=== PATIENT | female | born 1990 | race American Indian/Alaskan Native ===

== ENCOUNTER 2016-09-01 16:45 | Emergency (ER) | payer OTHER ==
[2016-09-01 16:55] VITALS: BP 146/98
--- NOTE | 2016-09-01 18:27 | Emergency Department Report ---
ED Rash HPI - HPI Chief Complaint: Skin Rash Stated Complaint: RASH ENTIRE BODY Time Seen by Provider: 09/01/16 17:41 Duration: 2 Days Location: Other Suspected Cause: Unknown Rash Symptoms: Yes Itching, No Facial Swelling, No Tongue/Oral Swelling, No Breathing Difficulties, No Choking Sensation, No Wheezing/Dyspnea, No Peeling, No Blistering, No Fever, No Lightheaded, No Malaise, No Myalgias Severity: mild Other History: 25 year old femael presents with rash to arms, chest, torso, legs , face for 2 days that it redy, bumpy, and itchy. denies taking medication. denies fever, cp, sob, throat swelling. denies allergies. ED Review of Systems ROS: Stated complaint: RASH ENTIRE BODY Other details as noted in HPI Constitutional: denies: chills, fever Eyes: denies: eye pain, eye discharge, vision change ENT: denies: ear pain, throat pain Respiratory: denies: cough, shortness of breath, wheezing Cardiovascular: denies: chest pain, palpitations Endocrine: no symptoms reported Gastrointestinal: denies: abdominal pain, nausea, diarrhea Genitourinary: denies: urgency, dysuria, discharge Musculoskeletal: denies: back pain, joint swelling, arthralgia Skin: rash. denies: lesions Neurological: denies: headache, weakness, paresthesias Psychiatric: denies: anxiety, depression Hematological/Lymphatic: denies: easy bleeding, easy bruising ED Past Medical Hx - Past Medical History Hx HIV: Yes (dx 08/2016) - Surgical History Hx Cholecystectomy: Yes - Social History Smoking Status: Never Smoker Substance Use Type: None - Medications Home Medications: Home Medications Medication Instructions Recorded Confirmed Last Taken Type Permethrin 5% [Acticin 5% CREAM] 1 applicatio TP ONCE #1 tube 09/01/16 Unknown Rx Prednisone [predniSONE 10 mg 10 mg PO .TAPER #1 tab.ds.pk 09/01/16 Unknown Rx (6-Day Pack, 21 Tabs)] hydrOXYzine PAMOATE [Vistaril] 25 mg PO Q6HR PRN #20 capsule 09/01/16 Unknown Rx Rash Exam - Exam General: Vital signs noted. No distress. Alert and acting appropriately. HEENT: No Periorbital Edema, No Conjuctival Injection, No Chemosis, No Perioral Edema, No Tongue Edema, No Uvular Edema, No Compromised Airway, No Drooling Lungs: Yes Good Air Exchange (Normal Breath Sounds), No Wheezes, No Ronchi, No Stridor, No Cough, No Labored Respirations, No Retractions, No Use of Accessory Muscles, No Other Abnormal Lung Sounds Heart: Yes Regular, No Murmur Skin: Yes Maculopapular Rash, No Urticarial Rash, No Morbilliform rash, No Bulla (e), No Excoriations, No Weeping, No Tenderness, No Erythema, No Edema, No Encrustations, No Other Other: Positive: Abdomen Normal, Neurologic Normal, Musculoskeletal Normal ED Course Vital Signs 09/01/16 16:50 Temperature 98 F Pulse Rate 95 H Respiratory 18 Rate Blood Pressure 146/98 O2 Sat by Pulse 100 Oximetry ED Medical Decision Making - Medical Decision Making patient symptoms appear to be consistent with scabies. Critical care attestation.: If time is entered above; I have spent that time in minutes in the direct care of this critically ill patient, excluding procedure time. ED Disposition Clinical Impression: Rash and nonspecific skin eruption, Itching Disposition: DISCHARGED TO HOME OR SELFCARE Is pt being admited?: No Does the pt Need Aspirin: No Condition: Good Instructions: Acute Rash (ED) Prescriptions: hydrOXYzine PAMOATE [Vistaril] 25 mg PO Q6HR PRN #20 capsule PRN Reason: Itching Permethrin 5% [Acticin 5% CREAM] 1 applicatio TP ONCE #1 tube Prednisone [predniSONE 10 mg (6-Day Pack, 21 Tabs)] 10 mg PO .TAPER #1 tab.darian Referrals: PRIMARY CARE, [Primary Care Provider] - 3-5 Days Forms: Work/School Release Form(ED) Time of Disposition: 18:34
[2016-09-01] MEDS ORDERED: DECADRON IM ONE (18:35)
== END 2016-09-01 19:08 | disposition home or self-care (01) ==
LOC: ED 16:45
DX: R21 Rash and other nonspecific skin eruption (principal); L29.9 Pruritus, unspecified
CPT/HCPCS: 96372; 99282; J1100

== ENCOUNTER 2016-12-31 19:32 | Emergency (ER) | payer SELFPAY ==
[2016-12-31 20:29] LABS: Basophils % (Auto) 0.9 % (0.0-1.8); Eosinophils % (Auto) 2.2 % (0.0-4.3); Hematocrit 44.1 % (30.3-42.9); Hemoglobin 14.1 gm/dl (10.1-14.3); Mean Corpuscular HGB Conc 32 % (30-34); Mean Corpuscular Hemoglobin 26 pg (28-32); Mean Corpuscular Volume 81 fl (79-97); Red Blood Count 5.43 M/mm3 (3.65-5.03); Red Cell Distribution Width 15.6 % (13.2-15.2); White Blood Count 9.3 K/mm3 (4.5-11.0)
[2016-12-31 20:42] LABS: Platelet Count 242 K/mm3 (140-440)
[2016-12-31 21:19] LABS: Alanine Aminotransferase 62 units/L (7-56); Albumin 4.5 g/dL (3.9-5); Albumin/Globulin Ratio 1.6 %; Alkaline Phosphatase 57 units/L (35-129); Anion Gap 21 mmol/L; BUN/Creatinine Ratio 15.71; Bilirubin,Total < 0.20 mg/dL (0.1-1.2); Blood Urea Nitrogen 11 mg/dL (7-17); Calcium 9.4 mg/dL (8.4-10.2); Carbon Dioxide 23 mmol/L (22-30); Chloride 103.9 mmol/L (98-107); Glucose 108 mg/dL (65-100); Potassium 4.5 mmol/L (3.6-5.0); Sodium 143 mmol/L (137-145); Total Protein 7.4 g/dL (6.3-8.2)
[2016-12-31 21:54] LABS: Bacteria,Urine 1+ /HPF (Negative); Bilirubin,Urine NEG (Negative); Blood,Urine NEG (Negative); Ketones,Urine NEG (Negative); Leukocyte Esterase,Urine NEG (Negative); Mucus,Urine 1+ /HPF; Nitrite,Urine NEG (Negative); Protein,Urine <15 mg/dL mg/dL (Negative); Urobilinogen,Urine < 2.0 mg/dL (<2.0)
[2017-01-01] MEDS ORDERED: TORADOL IM ONE (00:57)
--- NOTE | 2017-01-01 01:49 | Emergency Department Report ---
ED Abdominal Pain HPI - General Chief Complaint: Abdominal Pain Stated Complaint: ABD PAIN/DIZZY Time Seen by Provider: 01/01/17 00:43 Source: patient Mode of arrival: Ambulatory Limitations: No Limitations - History of Present Illness Initial Comments: Pt is a 26 yr old F with a h/o HIV on anti-virals who presents with abdominal pain. 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 Pain is sharp, intermittent, and does not radiate or migrate. Alleviated and exacerbated by nothing. Otherwise no fevers, chills, MEYERS, NVD, SOB, CP, dysuria, back pain, hematuria, trauma, falls, travel, or sick contacts. Prior cholecystectomy years ago - Related Data Previous Rx's Medication Instructions Recorded Last Taken Type Permethrin 5% [Acticin 5% CREAM] 1 applicatio TP ONCE #1 tube 09/01/16 Unknown Rx hydrOXYzine PAMOATE [Vistaril] 25 mg PO Q6HR PRN #20 capsule 09/01/16 Unknown Rx Naproxen [Naprosyn] 500 mg PO BID PRN #10 tablet 01/01/17 Unknown Rx Allergies Allergy/AdvReac Type Severity Reaction Status Date / Time Penicillins Allergy Unknown Verified 09/01/16 16:55 ED Review of Systems ROS: Stated complaint: ABD PAIN/DIZZY Other details as noted in HPI Comment: All other systems reviewed and negative ED Past Medical Hx - Past Medical History Previous Medical History?: Yes Hx HIV: Yes (dx 08/2016) - Surgical History Past Surgical History?: Yes Hx Cholecystectomy: Yes - Social History Smoking Status: Current Every Day Smoker Substance Use Type: None - Medications Home Medications: Home Medications Medication Instructions Recorded Confirmed Last Taken Type Permethrin 5% [Acticin 5% CREAM] 1 applicatio TP ONCE #1 tube 09/01/16 Unknown Rx hydrOXYzine PAMOATE [Vistaril] 25 mg PO Q6HR PRN #20 capsule 09/01/16 Unknown Rx Naproxen [Naprosyn] 500 mg PO BID PRN #10 tablet 01/01/17 Unknown Rx ED Physical Exam - General Limitations: No Limitations General appearance: alert, in no apparent distress - Head Head exam: Present: atraumatic, normocephalic - Eye Eye exam: Present: normal appearance - ENT ENT exam: Present: mucous membranes moist - Neck Neck exam: Present: normal inspection - Respiratory Respiratory exam: Present: normal lung sounds bilaterally. Absent: respiratory distress - Cardiovascular Cardiovascular Exam: Present: regular rate, normal rhythm. Absent: systolic murmur, diastolic murmur, rubs, gallop - GI/Abdominal GI/Abdominal exam: Present: soft, tenderness (mild RLQ tenderness), normal bowel sounds. Absent: distended, guarding, rebound, rigid, hyperactive bowel sounds, organomegaly, pulsatile mass, hernia - Rectal Rectal exam: Present: deferred - Extremities Exam Extremities exam: Present: normal inspection - Back Exam Back exam: Present: normal inspection - Neurological Exam Neurological exam: Present: alert, oriented X3 - Psychiatric Psychiatric exam: Present: normal affect, normal mood - Skin Skin exam: Present: warm, dry, intact, normal color. Absent: rash ED Course Vital Signs 12/31/16 01/01/17 20:03 02:07 Temperature 98.4 F Pulse Rate 103 H 65 Respiratory 20 20 Rate Blood Pressure 146/99 Blood Pressure 142/91 [Left] O2 Sat by Pulse 99 100 Oximetry ED Medical Decision Making - Lab Data Result diagrams: 12/31/16 20:10 12/31/16 20:10 - Medical Decision Making Results discussed with the patient Pt to follow up with her PMD for her abdominal paint and HTN Critical care attestation.: If time is entered above; I have spent that time in minutes in the direct care of this critically ill patient, excluding procedure time. ED Disposition Clinical Impression: Abdominal pain, HTN (hypertension) Disposition: DC-01 TO HOME OR SELFCARE Is pt being admited?: No Condition: Stable Instructions: Abdominal Pain (ED), Hypertension (ED) Additional Instructions: PLEASE FOLLOW UP WITH YOUR PMD FOR YOU ABDOMINAL PAIN AND TO MONITOR YOUR BP, YOU HAVE BORDERLINE HIGH BLOOD PRESSURE Prescriptions: Naproxen [Naprosyn] 500 mg PO BID PRN #10 tablet PRN Reason: Pain Referrals: PRIMARY CARE,MD [Primary Care Provider] - 3-5 Days
[2017-01-01 02:09] VITALS: BP 142/91
== END 2017-01-01 03:03 | disposition home or self-care (01) ==
LOC: ED 19:32
DX: R10.31 Right lower quadrant pain (principal); I10 Essential (primary) hypertension; F17.200 Nicotine dependence, unspecified, uncomplicated
CPT/HCPCS: 36415; 80053; 81001; 84703; 85025; 96372; 99283; J1885

== ENCOUNTER 2017-05-22 15:50 | Emergency (ER) | payer SELFPAY ==
[2017-05-22 16:02] VITALS: BP 142/98
--- NOTE | 2017-05-22 17:54 | Emergency Department Report ---
ED ENT HPI - General Chief complaint: Dental/Oral Stated complaint: TOOTH PAIN Time Seen by Provider: 05/22/17 17:49 Source: patient Mode of arrival: Ambulatory Limitations: No Limitations - History of Present Illness Initial comments: States her tooth has been hurting for two days. MD complaint: tooth pain -: Gradual, days(s) (2) Location: tooth # (2) Severity: mild Quality: sharp Consistency: constant Improves with: none Worsens with: none Context- Dental: history of dental caries Associated Symptoms: toothache. denies: fever, pain with swallowing - Related Data Previous Rx's Medication Instructions Recorded Last Taken Type Permethrin 5% [Acticin 5% CREAM] 1 applicatio TP ONCE #1 tube 09/01/16 Unknown Rx hydrOXYzine PAMOATE [Vistaril] 25 mg PO Q6HR PRN #20 capsule 09/01/16 Unknown Rx Naproxen [Naprosyn] 500 mg PO BID PRN #10 tablet 01/01/17 Unknown Rx Amoxicillin [Amoxicillin TAB] 875 mg PO BID #20 tablet 05/22/17 Unknown Rx Ibuprofen [Motrin] 800 mg PO Q8HR PRN #15 tablet 05/22/17 Unknown Rx Allergies Allergy/AdvReac Type Severity Reaction Status Date / Time Penicillins Allergy Unknown Verified 05/22/17 15:59 ED Dental HPI - General Chief complaint: Dental/Oral Stated complaint: TOOTH PAIN Time Seen by Provider: 05/22/17 17:49 Source: patient Mode of arrival: Ambulatory Limitations: No Limitations - Related Data Previous Rx's Medication Instructions Recorded Last Taken Type Permethrin 5% [Acticin 5% CREAM] 1 applicatio TP ONCE #1 tube 09/01/16 Unknown Rx hydrOXYzine PAMOATE [Vistaril] 25 mg PO Q6HR PRN #20 capsule 09/01/16 Unknown Rx Naproxen [Naprosyn] 500 mg PO BID PRN #10 tablet 01/01/17 Unknown Rx Amoxicillin [Amoxicillin TAB] 875 mg PO BID #20 tablet 05/22/17 Unknown Rx Ibuprofen [Motrin] 800 mg PO Q8HR PRN #15 tablet 05/22/17 Unknown Rx Allergies Allergy/AdvReac Type Severity Reaction Status Date / Time Penicillins Allergy Unknown Verified 05/22/17 15:59 ED Review of Systems ROS: Stated complaint: TOOTH PAIN Other details as noted in HPI Comment: All other systems reviewed and negative Constitutional: denies: chills, fever Eyes: denies: eye pain, eye discharge, vision change ENT: dental pain. denies: ear pain, throat pain Respiratory: denies: cough, shortness of breath, wheezing Cardiovascular: denies: chest pain, palpitations Endocrine: no symptoms reported Gastrointestinal: denies: abdominal pain, nausea, diarrhea Genitourinary: denies: urgency, dysuria, discharge Musculoskeletal: denies: back pain, joint swelling, arthralgia Skin: denies: rash, lesions Neurological: denies: headache, weakness, paresthesias Psychiatric: denies: anxiety, depression Hematological/Lymphatic: denies: easy bleeding, easy bruising ED Past Medical Hx - Past Medical History Hx HIV: Yes (dx 08/2016) - Surgical History Hx Cholecystectomy: Yes - Social History Smoking Status: Current Every Day Smoker Substance Use Type: Alcohol - Medications Home Medications: Home Medications Medication Instructions Recorded Confirmed Last Taken Type Permethrin 5% [Acticin 5% CREAM] 1 applicatio TP ONCE #1 tube 09/01/16 Unknown Rx hydrOXYzine PAMOATE [Vistaril] 25 mg PO Q6HR PRN #20 capsule 09/01/16 Unknown Rx Naproxen [Naprosyn] 500 mg PO BID PRN #10 tablet 01/01/17 Unknown Rx Amoxicillin [Amoxicillin TAB] 875 mg PO BID #20 tablet 05/22/17 Unknown Rx Ibuprofen [Motrin] 800 mg PO Q8HR PRN #15 tablet 05/22/17 Unknown Rx ED Physical Exam - General Limitations: No Limitations General appearance: alert, in no apparent distress - Head Head exam: Present: atraumatic, normocephalic - Eye Eye exam: Present: normal appearance - ENT ENT exam: Present: mucous membranes moist - Expanded ENT Exam Expanded Mouth exam: Present: normal external inspection. Absent: drooling, trismus Teeth exam: Present: dental caries, dental tenderness # (2), other (no facial or neck swelling. ) Throat exam: Positive: normal inspection - Neck Neck exam: Present: normal inspection - Respiratory Respiratory exam: Present: normal lung sounds bilaterally. Absent: respiratory distress, wheezes - Cardiovascular Cardiovascular Exam: Present: regular rate, normal rhythm. Absent: systolic murmur, diastolic murmur, rubs, gallop - GI/Abdominal GI/Abdominal exam: Present: soft, normal bowel sounds. Absent: tenderness - Extremities Exam Extremities exam: Present: normal inspection - Back Exam Back exam: Present: normal inspection - Neurological Exam Neurological exam: Present: alert, oriented X3 - Psychiatric Psychiatric exam: Present: normal affect, normal mood - Skin Skin exam: Present: warm, dry, intact, normal color. Absent: rash ED Course Vital Signs 05/22/17 15:59 Temperature 98.6 F Pulse Rate 103 H Respiratory 20 Rate Blood Pressure 142/98 O2 Sat by Pulse 98 Oximetry ED Medical Decision Making - Medical Decision Making Follow with dentist. Will give Amoxil- states allergy to PCN only and has taken Amoxil. - Differential Diagnosis dental pain, abscess Critical care attestation.: If time is entered above; I have spent that time in minutes in the direct care of this critically ill patient, excluding procedure time. ED Disposition Clinical Impression: Dentalgia Disposition: DC-01 TO HOME OR SELFCARE Is pt being admited?: No Condition: Good Instructions: Toothache (ED) Prescriptions: Amoxicillin [Amoxicillin TAB] 875 mg PO BID #20 tablet Ibuprofen [Motrin] 800 mg PO Q8HR PRN #15 tablet PRN Reason: Pain Forms: Work/School Release Form(ED) Time of Disposition: 17:54
[2017-05-22] MEDS ORDERED: TYLENOL #3 PO ONE (18:08)
[2017-05-22] MEDS ORDERED: LIDOCAINE VISCOUS 2% MM ONE (18:15)
== END 2017-05-22 18:29 | disposition home or self-care (01) ==
LOC: ED 15:50
DX: K08.89 Other specified disorders of teeth and supporting structures (principal); F17.200 Nicotine dependence, unspecified, uncomplicated; Z21 Asymptomatic human immunodeficiency virus [HIV] infection status; Z88.0 Allergy status to penicillin
CPT/HCPCS: 99282

== ENCOUNTER 2017-07-07 17:24 | Emergency (ER) | payer OTHER | END 2017-07-07 18:00 | disposition left against medical advice (07) | LOC: ED 17:24 | DX: K08.89 Other specified disorders of teeth and supporting structures (principal); Z53.21 Procedure and treatment not carried out due to patient leaving prior to being seen by health care provider ==

== ENCOUNTER 2017-12-23 18:34 | Emergency (ER) | payer BC ==
[2017-12-23 20:37] LABS: Bacteria,Urine 1+ /HPF (Negative); Bilirubin,Urine NEG (Negative); Blood,Urine NEG (Negative); Color,Urine Yellow (Yellow); Protein,Urine <15 mg/dL mg/dL (Negative); Urobilinogen,Urine < 2.0 mg/dL (<2.0)
[2017-12-23 20:58] LABS: Basophils # (Auto) 0.1 K/mm3 (0.0-0.1); Basophils % (Auto) 0.7 % (0.0-1.8); Eosinophils # (Auto) 0.2 K/mm3 (0.0-0.4); Eosinophils % (Auto) 1.5 % (0.0-4.3); Hematocrit 39.6 % (30.3-42.9); Hemoglobin 12.9 gm/dl (10.1-14.3); Lymphocytes # (Auto) 4.3 K/mm3 (1.2-5.4); Lymphocytes % (Auto) 35.4 % (13.4-35.0); Mean Corpuscular HGB Conc 33 % (30-34); Mean Corpuscular Hemoglobin 26 pg (28-32); Mean Corpuscular Volume 80 fl (79-97); Monocytes # (Auto) 0.8 K/mm3 (0.0-0.8); Monocytes % (Auto) 6.9 % (0.0-7.3); Platelet Count 268 K/mm3 (140-440); Red Blood Count 4.95 M/mm3 (3.65-5.03); Red Cell Distribution Width 15.2 % (13.2-15.2)
[2017-12-23 21:29] LABS: Alanine Aminotransferase 26 units/L (7-56); Albumin 4.2 g/dL (3.9-5); BUN/Creatinine Ratio 8; Blood Urea Nitrogen 7 mg/dL (7-17); Calcium 9.3 mg/dL (8.4-10.2); Hemolysis Index 10
[2017-12-23 21:46] LABS: HCG Qualitative,Urine Negative (Negative)
--- NOTE | 2017-12-23 22:44 | Emergency Department Report ---
HPI - General Chief Complaint: Abdominal Pain Time Seen by Provider: 12/23/17 22:28 - HPI HPI: Room 22 The patient is a 27-year-old female presenting with a chief complaint of abdominal pain. The patient states for the past 2-3 days she's had lower abdominal pain. The patient states yesterday the pain became localized to the right lower quadrant. Patient describes pain as sharp and crampy in nature. The patient states the pain is been intermittent and currently not present. Patient admits to subjective fever and chills. The patient admits to nausea but denies vomiting or diarrhea. Patient denies dysuria, hematuria, vaginal discharge or vaginal bleeding. The patient states her LMP occurred 10/08/2017 but she is normally somewhat regular. The patient is HIV positive and states her last CD4 count was in the 800s in November 2017 Location: Abdomen Duration: 3 days Quality: Sharp/cramping Severity: 0/10 currently Modifying factors: [see above] Context: [see above] Mode of transportation: [not driving] ED Past Medical Hx - Past Medical History Previous Medical History?: Yes Hx HIV: Yes (dx 08/2016) - Surgical History Past Surgical History?: Yes Hx Cholecystectomy: Yes - Family History Family history: no significant - Social History Smoking Status: Current Every Day Smoker (2/3 pack per day) Substance Use Type: Alcohol (occasional), Marijuana - Medications Home Medications: Home Medications Medication Instructions Recorded Confirmed Last Taken Type Permethrin 5% [Acticin 5% CREAM] 1 applicatio TP ONCE #1 tube 09/01/16 Unknown Rx hydrOXYzine PAMOATE [Vistaril] 25 mg PO Q6HR PRN #20 capsule 09/01/16 Unknown Rx Naproxen [Naprosyn] 500 mg PO BID PRN #10 tablet 01/01/17 Unknown Rx Amoxicillin [Amoxicillin TAB] 875 mg PO BID #20 tablet 05/22/17 Unknown Rx Ibuprofen [Motrin] 800 mg PO Q8HR PRN #15 tablet 05/22/17 Unknown Rx Ibuprofen [Motrin 800 MG tab] 800 mg PO Q8HR PRN #20 tablet 12/24/17 Unknown Rx traMADol [Ultram] 50 mg PO Q6HR PRN #10 tablet 12/24/17 Unknown Rx ED Review of Systems ROS: Stated complaint: ABDOMINAL PAIN Other details as noted in HPI Constitutional: chills, fever (subjective) Eyes: denies: eye pain ENT: denies: throat pain Cardiovascular: denies: chest pain Gastrointestinal: abdominal pain, nausea. denies: vomiting, diarrhea Genitourinary: abnormal menses. denies: dysuria, hematuria, discharge Musculoskeletal: denies: back pain Neurological: denies: headache Physical Exam - Physical Exam Vital Signs: Vital Signs 12/23/17 19:21 Temperature 99 F Pulse Rate 72 Blood Pressure 159/100 O2 Sat by Pulse 100 Oximetry Physical Exam: GENERAL: The patient is well-developed well-nourished female lying on stretcher not appearing to be in acute distress. [] HEENT: Normocephalic. Atraumatic. Extraocular motions are intact. Patient has moist mucous membranes. NECK: Supple. Trachea midline CHEST/LUNGS: Clear to auscultation. There is no respiratory distress noted. HEART/CARDIOVASCULAR: Regular. There is no tachycardia. There is no gallop rub or murmur. ABDOMEN: Abdomen is soft, with mild discomfort to palpation in the right upper quadrant. There is no rebound or guarding. Patient has normal bowel sounds. There is no abdominal distention. SKIN: There is no rash. There is no edema. There is no diaphoresis. NEURO: The patient is awake, alert, and oriented. The patient is cooperative. The patient has normal speech MUSCULOSKELETAL: There is no CVA tenderness. There is no evidence of acute injury. PELVIC: No discharge visualized. No bleeding. No cervical lesions appreciated ED Course Vital Signs 12/23/17 19:21 Temperature 99 F Pulse Rate 72 Blood Pressure 159/100 O2 Sat by Pulse 100 Oximetry ED Medical Decision Making - Lab Data Result diagrams: 12/23/17 20:39 12/23/17 20:39 Laboratory Tests 12/23/17 12/23/17 12/23/17 20:07 20:39 20:39 WBC 12.1 H RBC 4.95 Hgb 12.9 Hct 39.6 MCV 80 MCH 26 L MCHC 33 RDW 15.2 Plt Count 268 Lymph % (Auto) 35.4 H [place] % (Auto) 6.9 Eos % (Auto) 1.5 Baso % (Auto) 0.7 Lymph # 4.3 [place] # 0.8 Eos # 0.2 Baso # 0.1 Seg Neutrophils % 55.5 Seg Neutrophils # 6.7 Sodium 137 Potassium 3.9 Chloride 100.5 Carbon Dioxide 24 Anion Gap 16 BUN 7 Creatinine 0.9 Estimated GFR > 60 BUN/Creatinine Ratio 8 Glucose 88 Calcium 9.3 Total Bilirubin 0.40 AST 20 ALT 26 Alkaline Phosphatase 72 Total Protein 7.3 Albumin 4.2 Albumin/Globulin Ratio 1.4 Urine Color Yellow Urine Turbidity Clear Urine pH 6.0 Ur Specific [place] 1.014 Urine Protein <15 mg/dl Urine Glucose (UA) Neg Urine Ketones Neg Urine Blood Neg Urine Nitrite Neg Urine Bilirubin Neg Urine Urobilinogen < 2.0 Ur Leukocyte Esterase Neg Urine WBC (Auto) 1.0 Urine RBC (Auto) 1.0 U Epithel Cells (Auto) 1.0 Urine Bacteria (Auto) 1+ Urine HCG, Qual 12/23/17 21:39 WBC RBC Hgb Hct MCV MCH MCHC RDW Plt Count Lymph % (Auto) [place] % (Auto) Eos % (Auto) Baso % (Auto) Lymph # [place] # Eos # Baso # Seg Neutrophils % Seg Neutrophils # Sodium Potassium Chloride Carbon Dioxide Anion Gap BUN Creatinine Estimated GFR BUN/Creatinine Ratio Glucose Calcium Total Bilirubin AST ALT Alkaline Phosphatase Total Protein Albumin Albumin/Globulin Ratio Urine Color Urine Turbidity Urine pH Ur Specific [place] Urine Protein Urine Glucose (UA) Urine Ketones Urine Blood Urine Nitrite Urine Bilirubin Urine Urobilinogen Ur Leukocyte Esterase Urine WBC (Auto) Urine RBC (Auto) U Epithel Cells (Auto) Urine Bacteria (Auto) Urine HCG, Qual Negative Wet prep-less than 20% clue cells, no yeast, no Trichomonas - Radiology Data Radiology results: report reviewed (CT abdomen and pelvis), image reviewed (CT abdomen and pelvis) [place] [address] Cat Scan Report Signed Patient: GREG REYES MR#: [id number] : 1990 Acct:[id number] Age/Sex: 27 / F ADM Date: 12/23/17 Loc: ED Attending Dr: Ordering Physician: ADEOLA LAL MD Date of Service: 12/23/17 Procedure(s): CT abdomen pelvis w con Accession Number(s): [id number] cc: ADEOLA LAL MD FINAL REPORT EXAM: CT ABDOMEN PELVIS W CON HISTORY: right lower quadrant abdominal pain TECHNIQUE: Routine axial imaging was obtained of the abdomen and pelvis following the intravenous injection of 100 cc of Omnipaque 300. Delayed imaging was obtained through the kidneys ureters and bladder. Sagittal and coronal reconstructions were reviewed. FINDINGS: The lung bases are clear. Pleural fluid is not seen. The liver is mildly enlarged and reveals diminished attenuation compatible with hepatic steatosis. The gallbladder has been removed. The biliary tree appears normal. The pancreas, spleen, and adrenal glands appear normal. The kidneys enhance normally. There is no evidence of renal stones or hydronephrosis. The abdominal aorta is normal in caliber. The vascular structures enhance normally. The bowel loops are normal in caliber and course. The appendix is normal in configuration. There is no evidence of any inflammatory process in the right lower quadrant. In the pelvis the uterus and bladder are unremarkable. The skeletal structures do not show any acute changes. IMPRESSION: No acute process in the abdomen and pelvis. Hepatomegaly with hepatic steatosis. No evidence of appendicitis. No evidence of renal stones or hydronephrosis. Transcribed By: RB Dictated By: ZAC GOMEZ MD Electronically Authenticated By: ZAC GOMEZ MD Signed Date/Time: 12/24/1719 DD/ TD/TT: 12/24/1719 - Differential Diagnosis appendicitis, UTI, uterine fibroids, bacterial vaginosis, ovarian cyst Critical care attestation.: If time is entered above; I have spent that time in minutes in the direct care of this critically ill patient, excluding procedure time. ED Disposition Clinical Impression: Acute abdominal pain, Leukocytosis Disposition: - TO HOME OR SELFCARE Is pt being admited?: No Does the pt Need Aspirin: No Condition: Stable Instructions: Abdominal Pain (ED) Additional Instructions: Return to the emergency department immediately should you develop worsening symptoms, fever, inability to tolerate food or liquid or any other concerns. Prescriptions: Ibuprofen [Motrin 800 MG tab] 800 mg PO Q8HR PRN #20 tablet PRN Reason: Pain, Moderate (4-6) traMADol [Ultram] 50 mg PO Q6HR PRN #10 tablet PRN Reason: Pain Referrals: YANNA MCDONNELL MD [Primary Care Provider] - 3-5 Days SHARLA MADRID MD [Staff Physician] - 3-5 Days [facility] [Outside] - 3-5 Days Time of Disposition: 01:47
--- NOTE | 2017-12-24 00:25 | Cat Scan Report ---
FINAL REPORT EXAM: CT ABDOMEN PELVIS W CON HISTORY: right lower quadrant abdominal pain TECHNIQUE: Routine axial imaging was obtained of the abdomen and pelvis following the intravenous injection of 100 cc of Omnipaque 300. Delayed imaging was obtained through the kidneys ureters and bladder. Sagittal and coronal reconstructions were reviewed. FINDINGS: The lung bases are clear. Pleural fluid is not seen. The liver is mildly enlarged and reveals diminished attenuation compatible with hepatic steatosis. The gallbladder has been removed. The biliary tree appears normal. The pancreas, spleen, and adrenal glands appear normal. The kidneys enhance normally. There is no evidence of renal stones or hydronephrosis. The abdominal aorta is normal in caliber. The vascular structures enhance normally. The bowel loops are normal in caliber and course. The appendix is normal in configuration. There is no evidence of any inflammatory process in the right lower quadrant. In the pelvis the uterus and bladder are unremarkable. The skeletal structures do not show any acute changes. IMPRESSION: No acute process in the abdomen and pelvis. Hepatomegaly with hepatic steatosis. No evidence of appendicitis. No evidence of renal stones or hydronephrosis.
[2017-12-24 02:09] VITALS: BP 141/72
== END 2017-12-24 02:09 | disposition home or self-care (01) ==
LOC: ED 18:34
DX: D72.829 Elevated white blood cell count, unspecified (principal); R10.30 Lower abdominal pain, unspecified; F17.200 Nicotine dependence, unspecified, uncomplicated; F12.10 Cannabis abuse, uncomplicated
CPT/HCPCS: 36415; 74177; 80053; 81001; 81025; 85025; 87210; 87591; 99284; Q9967

== ENCOUNTER 2018-11-30 19:58 | Emergency (ER) | payer BC, OTHER ==
--- NOTE | 2018-11-30 20:05 | Emergency Department Report ---
Blank Doc - Documentation Documentation: This is a 28-year-old female that presents with bilateral ankle swelling. Den ies any chest pain or SOB. This initial assessment/diagnostic orders/clinical plan/treatment(s) is/are subject to change based on patient's health status, clinical progression and re- assessment by fellow clinical providers in the ED. Further treatment and workup at subsequent clinical providers discretion. Patient/guardians urged not to elope from the ED as their condition may be serious if not clinically assessed and managed. Initial orders include: 1- Patient sent to [facility] for further evaluation and treatment 2- labs
[2018-11-30 20:34] LABS: Basophils # (Auto) 0.1 K/mm3 (0.0-0.1); Basophils % (Auto) 0.5 % (0.0-1.8); Eosinophils # (Auto) 0.2 K/mm3 (0.0-0.4); Eosinophils % (Auto) 2.3 % (0.0-4.3); Hematocrit 40.5 % (30.3-42.9); Hemoglobin 13.4 gm/dl (10.1-14.3); Lymphocytes # (Auto) 3.9 K/mm3 (1.2-5.4); Lymphocytes % (Auto) 35.7 % (13.4-35.0); Mean Corpuscular HGB Conc 33 % (30-34); Mean Corpuscular Volume 83 fl (79-97); Monocytes # (Auto) 0.7 K/mm3 (0.0-0.8); Monocytes % (Auto) 6.1 % (0.0-7.3); Platelet Count 288 K/mm3 (140-440); Red Blood Count 4.91 M/mm3 (3.65-5.03); Red Cell Distribution Width 15.6 % (13.2-15.2)
[2018-11-30 21:01] LABS: BUN/Creatinine Ratio 11; Blood Urea Nitrogen 10 mg/dL (7-17); Hemolysis Index 14
--- NOTE | 2018-11-30 23:37 | Emergency Department Report ---
ED General Adult HPI - General Chief complaint: Extremity Problem,Nontraumatic Stated complaint: SWOLLEN ANKLES TINGLING Time Seen by Provider: 11/30/18 20:04 Source: patient Mode of arrival: Ambulatory Limitations: No Limitations - Related Data Previous Rx's Medication Instructions Recorded Last Taken Type Permethrin 5% [Acticin 5% CREAM] 1 applicatio TP ONCE #1 tube 09/01/16 Unknown Rx hydrOXYzine PAMOATE [Vistaril] 25 mg PO Q6HR PRN #20 capsule 09/01/16 Unknown Rx Naproxen [Naprosyn] 500 mg PO BID PRN #10 tablet 01/01/17 Unknown Rx Amoxicillin [Amoxicillin TAB] 875 mg PO BID #20 tablet 05/22/17 Unknown Rx Ibuprofen [Motrin] 800 mg PO Q8HR PRN #15 tablet 05/22/17 Unknown Rx Ibuprofen [Motrin 800 MG tab] 800 mg PO Q8HR PRN #20 tablet 12/24/17 Unknown Rx traMADol [Ultram] 50 mg PO Q6HR PRN #10 tablet 12/24/17 Unknown Rx Furosemide [Lasix] 20 mg PO QDAY #10 tablet 11/30/18 Unknown Rx Potassium Chloride [K-Dur] 10 meq PO QDAY #10 tablet 11/30/18 Unknown Rx Allergies Allergy/AdvReac Type Severity Reaction Status Date / Time Penicillins Allergy Unknown Verified 05/22/17 15:59 ED Review of Systems ROS: Stated complaint: SWOLLEN ANKLES TINGLING Other details as noted in HPI Constitutional: denies: chills, fever Eyes: denies: eye pain, eye discharge, vision change ENT: denies: ear pain, throat pain Respiratory: denies: cough, shortness of breath, wheezing Cardiovascular: denies: chest pain, palpitations Endocrine: no symptoms reported Gastrointestinal: denies: abdominal pain, nausea, diarrhea Genitourinary: denies: urgency, dysuria, discharge Musculoskeletal: denies: back pain, joint swelling, arthralgia Skin: denies: rash, lesions Neurological: denies: headache, weakness, paresthesias Psychiatric: denies: anxiety, depression Hematological/Lymphatic: denies: easy bleeding, easy bruising ED Past Medical Hx - Past Medical History Hx HIV: Yes (dx 08/2016- currently non-dectectable 11/2018) - Surgical History Hx Cholecystectomy: Yes - Social History Smoking Status: Current Every Day Smoker Substance Use Type: Marijuana - Medications Home Medications: Home Medications Medication Instructions Recorded Confirmed Last Taken Type Permethrin 5% [Acticin 5% CREAM] 1 applicatio TP ONCE #1 tube 09/01/16 Unknown Rx hydrOXYzine PAMOATE [Vistaril] 25 mg PO Q6HR PRN #20 capsule 09/01/16 Unknown Rx Naproxen [Naprosyn] 500 mg PO BID PRN #10 tablet 01/01/17 Unknown Rx Amoxicillin [Amoxicillin TAB] 875 mg PO BID #20 tablet 05/22/17 Unknown Rx Ibuprofen [Motrin] 800 mg PO Q8HR PRN #15 tablet 05/22/17 Unknown Rx Ibuprofen [Motrin 800 MG tab] 800 mg PO Q8HR PRN #20 tablet 12/24/17 Unknown Rx traMADol [Ultram] 50 mg PO Q6HR PRN #10 tablet 12/24/17 Unknown Rx Furosemide [Lasix] 20 mg PO QDAY #10 tablet 11/30/18 Unknown Rx Potassium Chloride [K-Dur] 10 meq PO QDAY #10 tablet 11/30/18 Unknown Rx ED Physical Exam - General Limitations: No Limitations ED Course Vital Signs 11/30/18 20:03 Temperature 98.1 F Pulse Rate 91 H Respiratory 18 Rate Blood Pressure 148/99 O2 Sat by Pulse 97 Oximetry ED Medical Decision Making - Lab Data Result diagrams: 11/30/18 20:23 11/30/18 20:23 Critical care attestation.: If time is entered above; I have spent that time in minutes in the direct care of this critically ill patient, excluding procedure time. ED Disposition Disposition: DC-01 TO HOME OR SELFCARE Condition: Stable Instructions: Leg Edema (ED) Additional Instructions: Please obtain some compression stockings to wear while standing at work as we discussed. The compression stockings should be about 15-20 mmHg of pressure and should be knee-high Prescriptions: Potassium Chloride [K-Dur] 10 meq PO QDAY #10 tablet Furosemide [Lasix] 20 mg PO QDAY #10 tablet Referrals: MACO MENDOSA MD [Primary Care Provider] - 3-5 Days
[2018-11-30 23:43] VITALS: BP 141/89
== END 2018-11-30 23:49 | disposition home or self-care (01) ==
LOC: ED 19:58
DX: R22.43 Localized swelling, mass and lump, lower limb, bilateral (principal); R20.2 Paresthesia of skin; F17.200 Nicotine dependence, unspecified, uncomplicated; F12.10 Cannabis abuse, uncomplicated; Z79.899 Other long term (current) drug therapy; Z88.0 Allergy status to penicillin
CPT/HCPCS: 36415; 80048; 83880; 84703; 85025; 99283

== ENCOUNTER 2021-06-16 23:01 | Emergency (ER) | payer SELFPAY ==
[2021-06-16 23:43] VITALS: BP 129/84
[2021-06-17] MEDS ORDERED: SODIUM CHLORIDE 0.9% 1000 ML 1,000 ML IV ONE (00:24)
[2021-06-17] MEDS ORDERED: METOCLOPRAMIDE 10 MG/2 ML INJ IV ONE (00:24)
[2021-06-17] MEDS ORDERED: MORPHINE 2 MG/1 ML INJ IV ONE (00:24)
--- NOTE | 2021-06-17 00:41 | Emergency Department Report ---
HPI - General Chief Complaint: Headache Time Seen by Provider: 06/17/21 00:04 - HPI HPI: 30-year-old -Burm[place] female presents to the emergency department with the complaint of waking up this evening with a right-sided headache and nausea with one episode of vomiting. The pain is around and behind the right eye, but the patient denies any eye pain or vision change. She denies any slurred speech, numbness or paresthesias, focal or lateralizing weakness, or any other neurological deficits. Currently the pain is about an 8 out of 10 in intensity. No known aggravating or alleviating factors. Initially she described the headache as a migraine, but denies any history of a migraine diagnosis. She does admit to having recurrent headaches that occur around her menstrual cycle. Her menstrual cycle just ended yesterday. She said that she last had a headache like this about 6 months ago, but at that time she felt it was related to a sinus infection. She has not taken anything for symptoms prior to presentation today. She has a past medical history of HIV. ED Past Medical Hx - Past Medical History Hx HIV: Yes (dx 08/2016- currently non-dectectable 11/2018) - Surgical History Hx Cholecystectomy: Yes - Social History Smoking Status: Current Every Day Smoker Substance Use Type: Marijuana - Medications Home Medications: Home Medications Medication Instructions Recorded Confirmed Last Taken Type Permethrin 5% [Acticin 5% CREAM] 1 applicatio TP ONCE #1 tube 09/01/16 Unknown Rx hydrOXYzine PAMOATE [Vistaril] 25 mg PO Q6HR PRN #20 capsule 09/01/16 Unknown Rx Naproxen [Naprosyn] 500 mg PO BID PRN #10 tablet 01/01/17 Unknown Rx Amoxicillin [Amoxicillin TAB] 875 mg PO BID #20 tablet 05/22/17 Unknown Rx Ibuprofen [Motrin] 800 mg PO Q8HR PRN #15 tablet 05/22/17 Unknown Rx Ibuprofen [Motrin 800 MG tab] 800 mg PO Q8HR PRN #20 tablet 12/24/17 Unknown Rx traMADoL [Ultram] 50 mg PO Q6HR PRN #10 tablet 12/24/17 Unknown Rx Furosemide [Lasix] 20 mg PO QDAY #10 tablet 11/30/18 Unknown Rx Potassium Chloride [K-Dur] 10 meq PO QDAY #10 tablet 11/30/18 Unknown Rx ED Review of Systems ROS: Stated complaint: HEADACHE/VOMITING Other details as noted in HPI Comment: All other systems reviewed and negative Constitutional: denies: chills, fever Eyes: denies: eye pain, vision change ENT: denies: ear pain, throat pain Respiratory: denies: cough, shortness of breath Cardiovascular: denies: chest pain, palpitations Gastrointestinal: nausea, vomiting. denies: abdominal pain Genitourinary: denies: dysuria, discharge Musculoskeletal: denies: back pain, arthralgia Skin: denies: rash, lesions Neurological: headache. denies: numbness, paresthesias Physical Exam - Physical Exam Vital Signs: Vital Signs 06/16/21 23:41 Temperature 98.1 F Pulse Rate 71 Respiratory 17 Rate Blood Pressure 129/84 [Right] O2 Sat by Pulse 100 Oximetry Physical Exam: GENERAL: The patient is well-developed well-nourished. HENT: Normocephalic. Atraumatic. Patient has moist mucous membranes. EYES: Extraocular motions are intact. Pupils equal reactive to light bilaterally. There is mild fatigable horizontal nystagmus. NECK: Supple. Trachea is midline. CHEST/LUNGS: Clear to auscultation. There is no respiratory distress noted. HEART/CARDIOVASCULAR: Regular. There is no tachycardia. There is no murmur. ABDOMEN: Abdomen is soft, nontender. Patient has normal bowel sounds. SKIN: Skin is warm and dry. NEURO: The patient is awake, alert, and oriented. The patient is cooperative. The patient has no focal neurologic deficits. Normal speech. Cranial nerves II through XII grossly intact. No facial asymmetry. MUSCULOSKELETAL: There is no tenderness or deformity. There is no limitation range of motion. ED Course Vital Signs 06/16/21 23:41 Temperature 98.1 F Pulse Rate 71 Respiratory 17 Rate Blood Pressure 129/84 [Right] O2 Sat by Pulse 100 Oximetry ED Medical Decision Making - Medical Decision Making This patient presents to the emergency department with complaint of a headache and nausea with one episode of vomiting that started this evening. On examination she does not have any focal, motor or sensory deficits and her cranial nerves are intact. Patient was given IV fluid resuscitation, IV Reglan, and 1 dose of IV analgesia. The patient was reevaluated multiple times over a few hours and the patient is greatly improved. The headache has completely resolved. There is been no further episodes of nausea with vomiting and the patient is able to pass an oral challenge. Vital signs reassuring including being afebrile. She will be discharged home to follow-up with primary care and has been given a referral for a local neurologist. She will return to the emergency department with any worsening of her symptoms or with any acute distress. Critical Care Time: No Critical care attestation.: If time is entered above; I have spent that time in minutes in the direct care of this critically ill patient, excluding procedure time. ED Disposition Clinical Impression: Headache Qualifiers: Headache type: unspecified Headache chronicity pattern: unspecified pattern I ntractability: not intractable Qualified Code(s): R51.9 - Headache, unspecified Disposition: 01 HOME / SELF CARE / HOMELESS Is pt being admited?: No Condition: Stable Instructions: General Headache Without Cause Additional Instructions: Please follow-up with a primary care physician in the next few days. I have given you a referral for a local primary care physician, Dr. Stoll, and a primary care clinic, [facility]. I am giving you a referral for a local neurologist, Dr. Dorsey, to follow-up regarding your headaches. Return to the emergency department with any worsening of your symptoms, new or concerning symptoms not addressed during this current emergency department visit, or with any acute distress. Referrals: YANNA MCDONNELL MD [Primary Care Provider] - 3-5 Days LINDSAY STOLL MD [Staff Physician] - 3-5 Days MIKE DORSEY MD [Referring] - 3-5 Days [facility] [Provider Group] - 3-5 Days Forms: Work/School Release Form(ED) Time of Disposition: 01:47
== END 2021-06-17 02:40 | disposition home or self-care (01) ==
LOC: ED 23:01
DX: R51.9 Headache, unspecified (principal); R11.2 Nausea with vomiting, unspecified; F17.200 Nicotine dependence, unspecified, uncomplicated; F12.90 Cannabis use, unspecified, uncomplicated; Z90.49 Acquired absence of other specified parts of digestive tract; Z88.0 Allergy status to penicillin
CPT/HCPCS: 96361; 96374; 96375; 99282; J2270; J2765; J7030; Q0162

== ENCOUNTER 2021-07-09 20:57 | Emergency (ER) | payer SELFPAY ==
--- NOTE | 2021-07-09 21:23 | XRay Report ---
RIGHT SHOULDER 3 VIEWS INDICATION / CLINICAL INFORMATION: Right shoulder injury, possible dislocation, history of fall. COMPARISON: None available. FINDINGS: BONES and JOINT(S): No acute fracture or subluxation. No significant arthritis. SOFT TISSUES: No significant abnormality. ADDITIONAL FINDINGS: None. IMPRESSION: 1. No acute findings. Signer Name: Bhavin Ochoa MD Signed: 07/09/2021 9:18 PM Workstation Name: [id number]
[2021-07-09] MEDS ORDERED: oxyCODONE /ACETAMINOPHEN 5-325MG TAB PO ONE (23:50)
[2021-07-10] MEDS ORDERED: ONDANSETRON 4 MG ODT TAB PO ONE (01:02)
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
[2021-07-10 01:22] VITALS: BP 152/90
== END 2021-07-10 01:20 | disposition home or self-care (01) ==
LOC: ED 20:57
DX: M25.511 Pain in right shoulder (principal); W18.30XA Fall on same level, unspecified, initial encounter; F17.200 Nicotine dependence, unspecified, uncomplicated; F12.10 Cannabis abuse, uncomplicated; Y93.89 Activity, other specified; Y92.89 Other specified places as the place of occurrence of the external cause; Y99.8 Other external cause status
CPT/HCPCS: 99283; J3490; Q0162